=== PATIENT | female | born 1940 | race American Indian/Alaskan Native ===

== ENCOUNTER 2017-01-05 14:28 | Outpatient (CLI) | payer MEDICARE ==
--- NOTE | 2017-01-05 16:39 | Mammography Report ---
BILATERAL MAMMOGRAM: FINDINGS: The breast tissue is heterogeneously dense, which could obscure detection of small masses (approximately 50%-75% glandular). No mass, distortion, suspicious calcification, or skin change is seen. No significant change identified when compared to prior exam in January 2015. CAD was utilized. IMPRESSION: Negative mammogram. There is no mammographic evidence of malignancy. RECOMMENDATION: Follow-up per ACS guidelines. BI-RADS CATEGORY: 1 = Negative ACR BI-RADS MAMMOGRAPHIC CODES: 0 = Needs additional imaging evaluation; 1 = Negative; 2 = Benign; 3 = Probably benign; 4 = Suspicious; 5 = Malignant; 6 = Known biopsy-proven malignancy COMMENT: 1. Dense breast tissue, i.e., adenosis, fibrocystic changes, etc., may obscure an underlying neoplasm. 2. Approximately 10% of cancers are not detected with mammography. 3. A negative mammography report should not delay biopsy if a clinically suspicious mass is present. COMMENT: Patient follow-up letters are generated in [facility].
== END 2017-01-05 14:29 | disposition home or self-care (01) ==
LOC: MAMMO 14:28
PROVIDERS: ATTEND Internal Medicine
DX: Z12.31 Encounter for screening mammogram for malignant neoplasm of breast (principal)
CPT/HCPCS: 77067; G0202

== ENCOUNTER 2017-04-26 09:16 | Emergency (ER) | payer SELFPAY ==
[2017-04-26 12:42] LABS: Bilirubin,Urine NEG (Negative); Blood,Urine NEG (Negative); Color,Urine Yellow (Yellow); Mucus,Urine FEW /HPF; Nitrite,Urine NEG (Negative); Protein,Urine <15 mg/dL mg/dL (Negative); Urobilinogen,Urine < 2.0 mg/dL (<2.0)
[2017-04-26 13:03] LABS: Basophils % (Auto) 0.3 % (0.0-1.8); Eosinophils # (Auto) 0.1 K/mm3 (0.0-0.4); Eosinophils % (Auto) 1.2 % (0.0-4.3); Hematocrit 44.5 % (30.3-42.9); Hemoglobin 15.2 gm/dl (10.1-14.3); Lymphocytes # (Auto) 1.3 K/mm3 (1.2-5.4); Lymphocytes % (Auto) 15.5 % (13.4-35.0); Mean Corpuscular HGB Conc 34 % (30-34); Mean Corpuscular Hemoglobin 33 pg (28-32); Mean Corpuscular Volume 97 fl (79-97); Monocytes # (Auto) 1.1 K/mm3 (0.0-0.8); Monocytes % (Auto) 13.3 % (0.0-7.3); Platelet Count 164 K/mm3 (140-440); Red Blood Count 4.61 M/mm3 (3.65-5.03)
[2017-04-26 13:18] LABS: BUN/Creatinine Ratio 16; Blood Urea Nitrogen 11 mg/dL (7-17); Calcium 9.6 mg/dL (8.4-10.2); Hemolysis Index 11
--- NOTE | 2017-04-26 14:27 | Emergency Department Report ---
ED Anxiety HPI - General Chief Complaint: Anxiety Stated Complaint: SICK/HURT ALL OVER Time Seen by Provider: 04/26/17 11:24 Source: patient Mode of arrival: Ambulatory - History of Present Illness Initial Comments: This is a 77-year-old female nontoxic, well nourished in appearance, no acute signs of distress presents to the ED with c/o of anxiety exacerbation. 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 Patient stated she does have a primary care doctor and takes medication for anxiety. Patient had any chest pain, shortness of breath, fever, chills, nausea, vomiting, headache or stiff neck. Patient denies suicidal or homicidal indications. Patient denies any other symptoms. Denies any allergies. Past history includes arthritis, GERD, hypertension, and anxiety. MD Complaint: anxiety -: days(s) (2) Symptoms: palpitations Place: home Previous History of Same: Yes Severity: mild Quality: intermittant Provoking factors: emotional stress Improves With: nothing Worsens With: nothing Associated symptoms: palpitations. denies: chest pain, shortness of breath, diaphoresis, confusion, cough, fever/chills, headaches, anorexia, malaise, nausea/vomiting, rash, seizure, syncope, weakness - Related Data Home Medications: Home Medications Medication Instructions Recorded Confirmed Last Taken Buspirone HCl [busPIRone] 15 mg PO QDAY 02/12/16 02/12/16 02/14/16 06:00 Lisinopril [Zestril] 20 mg PO QDAY 02/12/16 02/12/16 02/14/16 06:00 Omeprazole Magnesium [PriLOSEC Otc] 20 mg PO QDAY 02/12/16 02/12/16 02/14/16 06: 00 amLODIPine [Norvasc] 5 mg PO DAILY 02/12/16 02/12/16 02/14/16 06:00 Allergies/Adverse Reactions: Allergies Allergy/AdvReac Type Severity Reaction Status Date / Time No Known Allergies Allergy Unverified 07/11/13 15:22 ED Review of Systems ROS: Stated complaint: SICK/HURT ALL OVER Other details as noted in HPI Constitutional: denies: chills, fever Eyes: denies: eye pain, eye discharge, vision change ENT: denies: ear pain, throat pain Respiratory: denies: cough, shortness of breath, wheezing Cardiovascular: palpitations. denies: chest pain Endocrine: no symptoms reported Gastrointestinal: denies: abdominal pain, nausea, diarrhea Genitourinary: denies: urgency, dysuria, discharge Musculoskeletal: denies: back pain, joint swelling, arthralgia Skin: denies: rash, lesions Neurological: denies: headache, weakness, paresthesias Psychiatric: anxiety. denies: depression Hematological/Lymphatic: denies: easy bleeding, easy bruising ED Past Medical Hx - Past Medical History Previous Medical History?: Yes Hx Hypertension: Yes (FOR 10+ YRS) Hx GERD: Yes Hx Arthritis: Yes (IN HANDS AND KNEES) Hx Kidney Stones: Yes Hx HIV: No - Surgical History Past Surgical History?: Yes Additional Surgical History: right thumb surgery - Social History Smoking Status: Current Some Day Smoker Substance Use Type: Marijuana, Prescribed, Tranquilizers - Medications Home Medications: Home Medications Medication Instructions Recorded Confirmed Last Taken Type Buspirone HCl [busPIRone] 15 mg PO QDAY 02/12/16 02/12/16 02/14/16 06:00 History Lisinopril [Zestril] 20 mg PO QDAY 02/12/16 02/12/16 02/14/16 06:00 History Omeprazole Magnesium [PriLOSEC Otc] 20 mg PO QDAY 02/12/16 02/12/16 02/14/16 06: 00 History amLODIPine [Norvasc] 5 mg PO DAILY 02/12/16 02/12/16 02/14/16 06:00 History ED Physical Exam - General Limitations: No Limitations General appearance: alert, in no apparent distress - Head Head exam: Present: atraumatic, normocephalic - Eye Eye exam: Present: normal appearance Pupils: Present: normal accommodation - ENT ENT exam: Present: normal exam, normal orophraynx, mucous membranes moist, TM's normal bilaterally, normal external ear exam - Neck Neck exam: Present: normal inspection, full ROM. Absent: tenderness, meningismus, lymphadenopathy, thyromegaly - Respiratory Respiratory exam: Present: normal lung sounds bilaterally. Absent: respiratory distress, wheezes, rales, rhonchi, stridor, chest wall tenderness, accessory muscle use, decreased breath sounds, prolonged expiratory - Cardiovascular Cardiovascular Exam: Present: regular rate, normal rhythm, normal heart sounds. Absent: bradycardia, tachycardia, irregular rhythm, systolic murmur, diastolic murmur, rubs, gallop - GI/Abdominal GI/Abdominal exam: Present: soft, normal bowel sounds. Absent: distended, tenderness, guarding, rebound, rigid, diminished bowel sounds - Rectal Rectal exam: Present: deferred - Extremities Exam Extremities exam: Present: normal inspection, full ROM, normal capillary refill. Absent: tenderness, pedal edema, joint swelling, calf tenderness - Back Exam Back exam: Present: normal inspection, full ROM. Absent: tenderness, CVA tenderness (R), CVA tenderness (L), muscle spasm, paraspinal tenderness, vertebral tenderness, rash noted - Neurological Exam Neurological exam: Present: alert, oriented X3, CN II-XII intact, normal gait, reflexes normal - Psychiatric Psychiatric exam: Present: normal affect, normal mood - Skin Skin exam: Present: warm, dry, intact, normal color. Absent: rash ED Course Vital Signs 04/26/17 09:57 Temperature 98.1 F Pulse Rate 65 Respiratory 16 Rate Blood Pressure 162/60 O2 Sat by Pulse 100 Oximetry - Reevaluation(s) Reevaluation #1: 04/26/17 14:29 Patient is speaking in full sentences with no signs of distress noted. ED Medical Decision Making - Lab Data Result diagrams: 04/26/17 12:34 04/26/17 12:34 - EKG Data When compared to previous EKG there are: no significant change Interpretation: no acute changes - Medical Decision Making This is a 77-year-old female that presents with anxiety. Patient is stable and was examined by me. EKG obtained with no acute changes and nonstemi. Patient currently stated is not anxious and does not have any SI/HI indications. Patient was instructed to Follow-up with a primary care doctor in 3-5 days or if symptoms worsen and continue return to emergency room as soon as possible. At time of discharge, the patient does not seem toxic or ill in appearance. No acute signs of distress noted. Patient agrees to discharge treatment plan of care. No further questions noted by the patient. Critical care attestation.: If time is entered above; I have spent that time in minutes in the direct care of this critically ill patient, excluding procedure time. ED Disposition Clinical Impression: Anxiety Disposition: DC-01 TO HOME OR SELFCARE Is pt being admited?: No Does the pt Need Aspirin: No Condition: Stable Instructions: Anxiety (ED) Additional Instructions: Follow-up with a primary care doctor in 3-5 days or if symptoms worsen and continue return to emergency room as soon as possible. Referrals: PRIMARY CARE, [Primary Care Provider] - 3-5 Days HUMBERTO SALINAS MD [Staff Physician] - 3-[address] [facility] [Outside] - 3-5 Days [facility] [Outside] - 3-5 Days
[2017-04-26 15:04] VITALS: BP 182/62
== END 2017-04-26 15:20 | disposition home or self-care (01) ==
LOC: ED 09:16
DX: F41.9 Anxiety disorder, unspecified (principal); F17.200 Nicotine dependence, unspecified, uncomplicated; F12.10 Cannabis abuse, uncomplicated; I10 Essential (primary) hypertension; K21.9 Gastro-esophageal reflux disease without esophagitis; M19.90 Unspecified osteoarthritis, unspecified site; F13.10 Sedative, hypnotic or anxiolytic abuse, uncomplicated; Z87.442 Personal history of urinary calculi
CPT/HCPCS: 36415; 80048; 81001; 84484; 85025; 93005; 93010; 99283

== ENCOUNTER 2018-10-19 08:19 | Emergency (ER) | payer MEDICARE ==
[2018-10-19] MEDS ORDERED: ASPIRIN PO ONE (08:34)
[2018-10-19 08:57] LABS: Basophils % (Auto) 0.3 % (0.0-1.8); Eosinophils # (Auto) 0.1 K/mm3 (0.0-0.4); Eosinophils % (Auto) 0.9 % (0.0-4.3); Hemoglobin 14.3 gm/dl (10.1-14.3); Lymphocytes # (Auto) 1.9 K/mm3 (1.2-5.4); Lymphocytes % (Auto) 18.7 % (13.4-35.0); Mean Corpuscular HGB Conc 34 % (30-34); Mean Corpuscular Volume 98 fl (79-97); Monocytes # (Auto) 0.9 K/mm3 (0.0-0.8); Monocytes % (Auto) 8.6 % (0.0-7.3); Platelet Count 202 K/mm3 (140-440); Red Blood Count 4.28 M/mm3 (3.65-5.03); Red Cell Distribution Width 13.5 % (13.2-15.2)
[2018-10-19 09:21] LABS: BUN/Creatinine Ratio 17; Blood Urea Nitrogen 12 mg/dL (7-17); Calcium 9.9 mg/dL (8.4-10.2); Hemolysis Index 4
--- NOTE | 2018-10-19 10:26 | Emergency Department Report ---
ED General Adult HPI - General Chief complaint: Chest Pain Stated complaint: NECK/SHOULDER PAIN Time Seen by Provider: 10/19/18 10:10 Source: patient Mode of arrival: Ambulatory Limitations: No Limitations - History of Present Illness Initial comments: 78-year-old female presents to the ED with stiffness in upper back, neck, and shoulders. Patient reports discomfort has been ongoing 2 days. Patient states this started at work, gradually. Patient reports brief episode of chest pain, currently resolved. Patient's main complaint is the upper back pain radiating into her neck and neck stiffness. Patient denies any shortness of breath. Denies fever, cough, nausea or vomiting. -: days(s) (2) Location: neck, chest, back Severity scale (0 -10): 8 Quality: aching, other ("stiff") Consistency: constant Improves with: none Worsens with: movement Associated Symptoms: chest pain. denies: fever/chills, headaches, nausea/vomiting, shortness of breath - Related Data Home Medications Medication Instructions Recorded Confirmed Last Taken Buspirone HCl [busPIRone] 15 mg PO QDAY 02/12/16 10/19/18 10/18/18 Lisinopril [Zestril] 20 mg PO QDAY 02/12/16 10/19/18 10/18/18 Omeprazole Magnesium [PriLOSEC Otc] 20 mg PO QDAY 02/12/16 10/19/18 10/18/18 amLODIPine [Norvasc] 5 mg PO DAILY 02/12/16 10/19/18 10/18/18 Previous Rx's Medication Instructions Recorded Last Taken Type Cyclobenzaprine HCl [Flexeril 5 MG 5 mg PO TID PRN #10 tab 10/19/18 Unknown Rx TAB] Naproxen [Naprosyn] 500 mg PO BID #20 tablet 10/19/18 Unknown Rx Allergies Allergy/AdvReac Type Severity Reaction Status Date / Time No Known Allergies Allergy Unverified 07/11/13 15:22 ED Review of Systems ROS: Stated complaint: NECK/SHOULDER PAIN Other details as noted in HPI Comment: All other systems reviewed and negative Constitutional: denies: chills, fever Respiratory: denies: cough, shortness of breath Cardiovascular: chest pain Gastrointestinal: denies: abdominal pain, nausea, vomiting Musculoskeletal: as per HPI Neurological: denies: headache ED Past Medical Hx - Past Medical History Previous Medical History?: Yes Hx Hypertension: Yes (FOR 10+ YRS) Hx GERD: Yes Hx Arthritis: Yes (IN HANDS AND KNEES) Hx Kidney Stones: Yes Hx HIV: No - Surgical History Past Surgical History?: Yes Additional Surgical History: right thumb surgery - Social History Smoking Status: Never Smoker Substance Use Type: Marijuana - Medications Home Medications: Home Medications Medication Instructions Recorded Confirmed Last Taken Type Buspirone HCl [busPIRone] 15 mg PO QDAY 02/12/16 10/19/18 10/18/18 History Lisinopril [Zestril] 20 mg PO QDAY 02/12/16 10/19/18 10/18/18 History Omeprazole Magnesium [PriLOSEC Otc] 20 mg PO QDAY 02/12/16 10/19/18 10/18/18 History amLODIPine [Norvasc] 5 mg PO DAILY 02/12/16 10/19/18 10/18/18 History Cyclobenzaprine HCl [Flexeril 5 MG 5 mg PO TID PRN #10 tab 10/19/18 Unknown Rx TAB] Naproxen [Naprosyn] 500 mg PO BID #20 tablet 10/19/18 Unknown Rx ED Physical Exam - General Limitations: No Limitations General appearance: alert, in no apparent distress - Head Head exam: Present: atraumatic, normocephalic - Eye Eye exam: Present: normal appearance, PERRL, EOMI - ENT ENT exam: Present: mucous membranes moist - Neck Neck exam: Present: other (decreased ROM and pain with leftward rotation) - Respiratory Respiratory exam: Present: normal lung sounds bilaterally. Absent: respiratory distress - Cardiovascular Cardiovascular Exam: Present: regular rate, normal rhythm - GI/Abdominal GI/Abdominal exam: Present: soft. Absent: distended, tenderness - Extremities Exam Extremities exam: Present: normal inspection, full ROM. Absent: pedal edema, calf tenderness - Back Exam Back exam: Present: normal inspection - Neurological Exam Neurological exam: Present: alert, oriented X3, CN II-XII intact. Absent: motor sensory deficit - Psychiatric Psychiatric exam: Present: normal affect, normal mood - Skin Skin exam: Present: warm, dry, intact, normal color ED Course Vital Signs 10/19/18 10/19/18 10/19/18 08:36 09:04 10:07 Temperature 98.2 F Pulse Rate 62 61 59 L Respiratory 18 20 17 Rate Blood Pressure 186/68 169/64 187/73 [Left] O2 Sat by Pulse 98 99 Oximetry 10/19/18 12:45 Temperature Pulse Rate 61 Respiratory 18 Rate Blood Pressure 148/72 [Left] O2 Sat by Pulse 96 Oximetry ED Medical Decision Making - Lab Data Result diagrams: 10/19/18 08:41 10/19/18 08:41 - EKG Data -: EKG Interpreted by [place] EKG shows normal: sinus rhythm, axis, intervals, QRS complexes, ST-T waves Rate: bradycardia (rate 59) - EKG Data Interpretation: no acute changes - Radiology Data Radiology results: report reviewed, image reviewed - Medical Decision Making - pt w/ 2 day hx of back and neck pain w/ stiffness - difficulty with rightward rotation - no neuro deficits - workup unremarkable - CTA negative for any evidence of aortic dissection - likely torticollis - pt given prescriptions - return precautions given - advised to f/u with her PCP - Differential Diagnosis torticollis, aortic dissection, ACS Critical care attestation.: If time is entered above; I have spent that time in minutes in the direct care of this critically ill patient, excluding procedure time. ED Disposition Clinical Impression: Acute torticollis Disposition: DC-01 TO HOME OR SELFCARE Is pt being admited?: No Condition: Stable Instructions: Spasmodic Torticollis (ED) Prescriptions: Cyclobenzaprine HCl [Flexeril 5 MG TAB] 5 mg PO TID PRN #10 tab PRN Reason: Spasms Naproxen [Naprosyn] 500 mg PO BID #20 tablet Referrals: [facility] TARYN [Primary Care Provider] - 3-5 Days PRIMARY CAREM[facility] [Referring] - 3-5 Days Time of Disposition: 12:39
[2018-10-19] MEDS ORDERED: MORPHINE IV ONE (10:27)
[2018-10-19] MEDS ORDERED: ZOFRAN IV ONE (10:27)
[2018-10-19] MEDS ORDERED: TORADOL IV ONE (12:17)
--- NOTE | 2018-10-19 12:33 | Cat Scan Report ---
CTA CHEST WITH CONTRAST INDICATION : chest and back pain. TECHNIQUE: Axial imaging performed through the chest, with contrast bolus timing set to maximize opa cification of the pulmonary arteries. Sagittal and coronal reformatted images. 3-plane MIP reformatte d images were obtained. All CT scans at this location are performed using CT dose reduction for ALAR A by means of automated exposure control. 100 mL of intravenous contrast administered. COMPARISON: None FINDINGS: Bolus: Contrast bolus timing is adequate. PTE: No filling defect is present to suggest PTE. Mediastinum: Mild cardiomegaly is evident. No pericardial effusion. The thoracic aorta is within nor mal limits. There are a few tiny bilateral thyroid cysts. The tracheobronchial tree and esophagus are unremarkable. No pathologic mediastinal adenopathy. Lungs: The lungs are clear. There are scattered parenchymal lung cysts measuring up to 1 cm. No evid ence for nodule, infiltrate or pleural effusion. Bones: Degenerative changes in the spine with nothing acute. Upper abdomen: Limited imaging of the upper abdomen shows nothing acute. IMPRESSION: Negative for pulmonary embolus. No acute cardiopulmonary findings. Minimal thoracic spondylosis. Signer Name: Celestino Chase Jr, MD Signed: 10/19/2018 12:29 PM Workstation Name: [id number]
[2018-10-19 12:46] VITALS: BP 148/72
--- NOTE | 2018-10-20 15:08 | XRay Report ---
CHEST 1 VIEW INDICATION: Shortness of breath. COMPARISON: None FINDINGS: Support devices: None. Heart: Heart size is borderline. Lungs/Pleura: No acute air space or interstitial disease. Additional findings: None. IMPRESSION: Borderline heart size. Lungs clear. Signer Name: Celestino Chase Jr, MD Signed: 10/19/2018 9:12 AM Workstation Name: [id number]
== END 2018-10-19 12:55 | disposition home or self-care (01) ==
LOC: ED 08:19
DX: M43.6 Torticollis (principal); I10 Essential (primary) hypertension; K21.9 Gastro-esophageal reflux disease without esophagitis; F12.10 Cannabis abuse, uncomplicated; M13.842 Other specified arthritis, left hand; M13.841 Other specified arthritis, right hand; M13.861 Other specified arthritis, right knee; M13.862 Other specified arthritis, left knee; Z79.899 Other long term (current) drug therapy; Z98.890 Other specified postprocedural states
CPT/HCPCS: 36415; 71045; 71275; 80048; 84484; 85025; 93005; 93010; 96374; 96375; 99285; J1885; J2270; J2405; Q9967

== ENCOUNTER 2018-12-18 13:00 | Inpatient (IN) | payer MEDICARE ==
--- NOTE | 2018-12-18 13:24 | Event Note ---
ED Screening Note Date of service: 12/18/18 Time: 13:20 ED Screening Note: This is a 78 y.o. F. that presents to the ER with hematemesis x 3-4 times since this morning. PMH of HTN, GERD, depression This initial assessment/diagnostic orders/clinical plan/treatment(s) is/are subject to change based on patients health status, clinical progression and re- assessment by fellow clinical providers in the ED. Further treatment and workup at subsequent clinical providers discretion. Patient/guardian urged not to elope from the ED as their condition may be serious if not clinically assessed and managed. Initial orders include: Labs
--- NOTE | 2018-12-18 14:27 | Emergency Department Report ---
ED Shortness of Breath HPI - General Chief Complaint: GI Bleed Stated Complaint: VOMIT BLOOD Time Seen by Provider: 12/18/18 13:20 Source: patient Mode of arrival: Ambulatory Limitations: No Limitations - History of Present Illness Initial Comments: 78-year-old -[place] female with history of hypertension and GERD presents with complaints of "hacking up blood" x today. She states she has been feeling fatigued for the past few days, but denies any chest pain, shortness of breath, worsening GERD, had a cheesy/black tarry stools, or abdominal pain. She states she believes she coughed up blood with a few clots she denies any history of PE/DVT, however states mild bilateral lower leg pain without swelling. No recent long travel or hormonal use -: Sudden - Related Data Home Medications Medication Instructions Recorded Confirmed Last Taken Buspirone HCl [busPIRone] 15 mg PO QDAY 02/12/16 10/19/18 10/18/18 Lisinopril [Zestril] 20 mg PO QDAY 02/12/16 10/19/18 10/18/18 Omeprazole Magnesium [PriLOSEC Otc] 20 mg PO QDAY 02/12/16 10/19/18 10/18/18 amLODIPine [Norvasc] 5 mg PO DAILY 02/12/16 10/19/18 10/18/18 Previous Rx's Medication Instructions Recorded Last Taken Type Cyclobenzaprine HCl [Flexeril 5 MG 5 mg PO TID PRN #10 tab 10/19/18 Unknown Rx TAB] Naproxen [Naprosyn] 500 mg PO BID #20 tablet 10/19/18 Unknown Rx Allergies Allergy/AdvReac Type Severity Reaction Status Date / Time No Known Allergies Allergy Unverified 07/11/13 15:22 ED Review of Systems ROS: Stated complaint: VOMIT BLOOD Other details as noted in HPI ED Past Medical Hx - Past Medical History Hx Hypertension: Yes (FOR 10+ YRS) Hx GERD: Yes Hx Arthritis: Yes (IN HANDS AND KNEES) Hx Kidney Stones: Yes Hx HIV: No - Surgical History Past Surgical History?: Yes Additional Surgical History: right thumb surgery - Social History Smoking Status: Current Every Day Smoker Substance Use Type: Marijuana - Medications Home Medications: Home Medications Medication Instructions Recorded Confirmed Last Taken Type Buspirone HCl [busPIRone] 15 mg PO QDAY 02/12/16 10/19/18 10/18/18 History Lisinopril [Zestril] 20 mg PO QDAY 02/12/16 10/19/18 10/18/18 History Omeprazole Magnesium [PriLOSEC Otc] 20 mg PO QDAY 02/12/16 10/19/18 10/18/18 History amLODIPine [Norvasc] 5 mg PO DAILY 02/12/16 10/19/18 10/18/18 History Cyclobenzaprine HCl [Flexeril 5 MG 5 mg PO TID PRN #10 tab 10/19/18 Unknown Rx TAB] Naproxen [Naprosyn] 500 mg PO BID #20 tablet 10/19/18 Unknown Rx ED Physical Exam - General Limitations: No Limitations ED Course Vital Signs 12/18/18 12/18/18 12/18/18 13:05 13:32 13:46 Temperature 98.2 F Pulse Rate 79 63 Respiratory 18 19 Rate Blood Pressure 145/58 Blood Pressure [Left] Blood Pressure 167/79 [Right] O2 Sat by Pulse 84 82 L 89 Oximetry 12/18/18 12/18/18 12/18/18 14:00 14:13 14:16 Temperature 99 F Pulse Rate 74 66 71 Respiratory 22 20 17 Rate Blood Pressure 145/58 140/61 Blood Pressure 145/58 [Left] Blood Pressure 145/58 [Right] O2 Sat by Pulse 100 96 98 Oximetry 12/18/18 12/18/18 12/18/18 14:30 14:46 15:00 Temperature Pulse Rate 67 72 70 Respiratory 22 22 21 Rate Blood Pressure 120/43 120/43 120/43 Blood Pressure [Left] Blood Pressure [Right] O2 Sat by Pulse 98 96 92 Oximetry 12/18/18 12/18/18 12/18/18 15:16 15:30 15:46 Temperature Pulse Rate 63 67 66 Respiratory 11 L 29 H 20 Rate Blood Pressure 120/43 151/61 151/61 Blood Pressure [Left] Blood Pressure [Right] O2 Sat by Pulse 96 95 100 Oximetry 12/18/18 12/18/18 16:00 16:36 Temperature Pulse Rate 100 H 80 Respiratory 21 15 Rate Blood Pressure 151/61 151/61 Blood Pressure [Left] Blood Pressure [Right] O2 Sat by Pulse 87 100 Oximetry ED Medical Decision Making - Lab Data Result diagrams: 12/18/18 15:06 12/18/18 15:06 Lab Results 12/18/18 12/18/18 12/18/18 Range/Units 15:06 15:06 15:06 WBC 16.3 H (4.5-11.0) K/mm3 RBC 4.46 (3.65-5.03) M/mm3 Hgb 14.6 H (10.1-14.3) gm/dl Hct 43.5 H (30.3-42.9) % MCV 98 H (79-97) fl MCH 33 H (28-32) pg MCHC 34 (30-34) % RDW 14.5 (13.2-15.2) % Plt Count 198 (140-440) K/mm3 Lymph % (Auto) 6.9 L (13.4-35.0) % [place] % (Auto) 5.8 (0.0-7.3) % Eos % (Auto) 0.0 (0.0-4.3) % Baso % (Auto) 0.5 (0.0-1.8) % Lymph # 1.1 L (1.2-5.4) K/mm3 [place] # 0.9 H (0.0-0.8) K/mm3 Eos # 0.0 (0.0-0.4) K/mm3 Baso # 0.1 (0.0-0.1) K/mm3 Seg Neutrophils % 86.8 H (40.0-70.0) % Seg Neutrophils # 14.2 H (1.8-7.7) K/mm3 PT (12.2-14.9) Sec. INR (0.87-1.13) APTT (24.2-36.6) Sec. Sodium 140 (137-145) mmol/L Potassium 4.1 (3.6-5.0) mmol/L Chloride 101.1 (98-107) mmol/L Carbon Dioxide 24 (22-30) mmol/L Anion Gap 19 mmol/L BUN 17 (7-17) mg/dL Creatinine 0.7 (0.7-1.2) mg/dL Estimated GFR > 60 ml/min BUN/Creatinine Ratio 24 % Glucose 95 (65-100) mg/dL Calcium 9.5 (8.4-10.2) mg/dL Troponin T 0.062 H (0.00-0.029) ng/mL NT-Pro-B Natriuret Pep (0-900) pg/mL Triglycerides 58 (2-149) mg/dL Cholesterol 177 (50-199) mg/dL LDL Cholesterol Direct 88 (50-130) mg/dL HDL Cholesterol 91 H (40-59) mg/dL Cholesterol/HDL Ratio 1.94 % Urine Color (Yellow) Urine Turbidity (Clear) Urine pH (5.0-7.0) Ur Specific [place] (1.003-1.030) Urine Protein (Negative) mg/dL Urine Glucose (UA) (Negative) mg/dL Urine Ketones (Negative) mg/dL Urine Blood (Negative) Urine Nitrite (Negative) Urine Bilirubin (Negative) Urine Urobilinogen (<2.0) mg/dL Ur Leukocyte Esterase (Negative) Urine WBC (Auto) (0.0-6.0) /HPF Urine RBC (Auto) (0.0-6.0) /HPF U Epithel Cells (Auto) (0-13.0) /HPF Urine Mucus /HPF 12/18/18 12/18/18 12/18/18 Range/Units 16:11 16:37 16:37 WBC (4.5-11.0) K/mm3 RBC (3.65-5.03) M/mm3 Hgb (10.1-14.3) gm/dl Hct (30.3-42.9) % MCV (79-97) fl MCH (28-32) pg MCHC (30-34) % RDW (13.2-15.2) % Plt Count (140-440) K/mm3 Lymph % (Auto) (13.4-35.0) % [place] % (Auto) (0.0-7.3) % Eos % (Auto) (0.0-4.3) % Baso % (Auto) (0.0-1.8) % Lymph # (1.2-5.4) K/mm3 [place] # (0.0-0.8) K/mm3 Eos # (0.0-0.4) K/mm3 Baso # (0.0-0.1) K/mm3 Seg Neutrophils % (40.0-70.0) % Seg Neutrophils # (1.8-7.7) K/mm3 PT 13.3 (12.2-14.9) Sec. INR 1.04 (0.87-1.13) APTT 29.2 (24.2-36.6) Sec. Sodium (137-145) mmol/L Potassium (3.6-5.0) mmol/L Chloride (98-107) mmol/L Carbon Dioxide (22-30) mmol/L Anion Gap mmol/L BUN (7-17) mg/dL Creatinine (0.7-1.2) mg/dL Estimated GFR ml/min BUN/Creatinine Ratio % Glucose (65-100) mg/dL Calcium (8.4-10.2) mg/dL Troponin T (0.00-0.029) ng/mL NT-Pro-B Natriuret Pep 843.5 (0-900) pg/mL Triglycerides (2-149) mg/dL Cholesterol (50-199) mg/dL LDL Cholesterol Direct (50-130) mg/dL HDL Cholesterol (40-59) mg/dL Cholesterol/HDL Ratio % Urine Color Yellow (Yellow) Urine Turbidity Clear (Clear) Urine pH 6.0 (5.0-7.0) Ur Specific [place] 1.013 (1.003-1.030) Urine Protein <15 mg/dl (Negative) mg/dL Urine Glucose (UA) Neg (Negative) mg/dL Urine Ketones Neg (Negative) mg/dL Urine Blood Neg (Negative) Urine Nitrite Neg (Negative) Urine Bilirubin Neg (Negative) Urine Urobilinogen < 2.0 (<2.0) mg/dL Ur Leukocyte Esterase Neg (Negative) Urine WBC (Auto) < 1.0 (0.0-6.0) /HPF Urine RBC (Auto) 2.0 (0.0-6.0) /HPF U Epithel Cells (Auto) < 1.0 (0-13.0) /HPF Urine Mucus Few /HPF - Radiology Data Radiology results: report reviewed CTA CHEST WITH CONTRAST INDICATION / CLINICAL INFORMATION: hypoxia, hemoptysis. TECHNIQUE: Axial CT images were obtained through the chest after injection of IV contrast. 3 plane MIP and/or 3D reconstructions were produced. All CT scans at this location are performed using CT dose reduction for ALARA by means of automated exposure control. COMPARISON: None available. FINDINGS: PULMONARY ARTERIES: No pulmonary emboli. THORACIC AORTA: No significant abnormality. HEART: Mildly enlarged. Slight enlargement of left ventricle since prior study. No pericardial effusion. CORONARY ARTERIES: Mild coronary artery calcification. MEDIASTINUM / KELLEN: No significant abnormality. PLEURA: No pleural effusion. No pneumothorax. LUNGS: Moderate bilateral interstitial pulmonary edema with peribronchial cuffing. ADDITIONAL FINDINGS: None. UPPER ABDOMEN: No acute findings. SKELETAL STRUCTURES: No significant osseous abnormality. IMPRESSION: 1. Mild cardiomegaly with moderate interstitial pulmonary edema. 2. No CT evidence for pulmonary embolism. DUPLEX DOPPLER LOWER EXTREMITY VEINS, BILATERAL INDICATION / CLINICAL INFORMATION: pain, hemoptysis. TECHNIQUE: Duplex doppler imaging was performed through the veins of both lower extremities using venous compression and other maneuvers. COMPARISON: None available. FINDINGS: RIGHT COMMON FEMORAL VEIN: Negative. RIGHT FEMORAL VEIN: Negative. RIGHT POPLITEAL VEIN: Negative. RIGHT CALF VEINS: Negative. LEFT COMMON FEMORAL VEIN: Negative. LEFT FEMORAL VEIN: Negative. LEFT POPLITEAL VEIN: Negative. LEFT CALF VEINS: Negative. ADDITIONAL FINDINGS: None. IMPRESSION: 1. No sonographic evidence for DVT in either lower extremity. - Medical Decision Making 78-year-old patient here for hemoptysis times one episode this morning. Patient noted to be hypoxic on room air satting around 88%. Patient satting at 96-98% on [address] a and ultrasound are negative for DVT and PE. Troponin mildly elevated. White count greater than 16. Patient continues to deny chest pain or shortness of breath. Discussed patient with samuel Gomez ardiologyrecommend serial EKGs, troponins, and admission. Patient to be admitted to hospital via Dr. Pope. Critical care attestation.: If time is entered above; I have spent that time in minutes in the direct care of this critically ill patient, excluding procedure time. ED Disposition Clinical Impression: Hypoxia, Elevated troponin Disposition: OP ADMIT IP TO THIS HOSP Is pt being admited?: Yes Condition: Stable Forms: Accompanied Note
[2018-12-18 15:49] LABS: Basophils # (Auto) 0.1 K/mm3 (0.0-0.1); Basophils % (Auto) 0.5 % (0.0-1.8); Hematocrit 43.5 % (30.3-42.9); Hemoglobin 14.6 gm/dl (10.1-14.3); Lymphocytes # (Auto) 1.1 K/mm3 (1.2-5.4); Lymphocytes % (Auto) 6.9 % (13.4-35.0); Mean Corpuscular HGB Conc 34 % (30-34); Mean Corpuscular Volume 98 fl (79-97); Monocytes # (Auto) 0.9 K/mm3 (0.0-0.8); Monocytes % (Auto) 5.8 % (0.0-7.3); Platelet Count 198 K/mm3 (140-440); Red Blood Count 4.46 M/mm3 (3.65-5.03); Red Cell Distribution Width 14.5 % (13.2-15.2)
[2018-12-18 16:08] LABS: BUN/Creatinine Ratio 24; Blood Urea Nitrogen 17 mg/dL (7-17); Calcium 9.5 mg/dL (8.4-10.2); Hemolysis Index 1
[2018-12-18 16:24] LABS: Bilirubin,Urine NEG (Negative); Blood,Urine NEG (Negative); Color,Urine Yellow (Yellow); Mucus,Urine FEW /HPF; Protein,Urine <15 mg/dL mg/dL (Negative); Urobilinogen,Urine < 2.0 mg/dL (<2.0); WBC,Urine < 1.0 /HPF (0.0-6.0)
--- NOTE | 2018-12-18 16:49 | Vascular Lab Report ---
DUPLEX DOPPLER LOWER EXTREMITY VEINS, BILATERAL INDICATION / CLINICAL INFORMATION: pain, hemoptysis. TECHNIQUE: Duplex doppler imaging was performed through the veins of both lower extremities using venous nory sravan and other maneuvers. COMPARISON: None available. FINDINGS: RIGHT COMMON FEMORAL VEIN: Negative. RIGHT FEMORAL VEIN: Negative. RIGHT POPLITEAL VEIN: Negative. RIGHT CALF VEINS: Negative. LEFT COMMON FEMORAL VEIN: Negative. LEFT FEMORAL VEIN: Negative. LEFT POPLITEAL VEIN: Negative. LEFT CALF VEINS: Negative. ADDITIONAL FINDINGS: None. IMPRESSION: 1. No sonographic evidence for DVT in either lower extremity. Signer Name: Makenna Escobedo MD Signed: 12/18/2018 4:44 PM Workstation Name: [id number]
[2018-12-18 17:02] LABS: Chol/HDL Ratio 1.94 %
[2018-12-18 17:56] LABS: INR 1.04 (0.87-1.13)
[2018-12-18 17:57] LABS: Partial Thromboplastin Time 29.2 Sec. (24.2-36.6)
--- NOTE | 2018-12-18 17:58 | Cat Scan Report ---
CTA CHEST WITH CONTRAST INDICATION / CLINICAL INFORMATION: hypoxia, hemoptysis. TECHNIQUE: Axial CT images were obtained through the chest after injection of IV contrast. 3 plane MIP and/or 3D reconstructions were produced. All CT scans at this location are performed using CT dose reduction f or ALARA by means of automated exposure control. COMPARISON: None available. FINDINGS: PULMONARY ARTERIES: No pulmonary emboli. THORACIC AORTA: No significant abnormality. HEART: Mildly enlarged. Slight enlargement of left ventricle since prior study. No pericardial effusi on. CORONARY ARTERIES: Mild coronary artery calcification. MEDIASTINUM / KELLEN: No significant abnormality. PLEURA: No pleural effusion. No pneumothorax. LUNGS: Moderate bilateral interstitial pulmonary edema with peribronchial cuffing. ADDITIONAL FINDINGS: None. UPPER ABDOMEN: No acute findings. SKELETAL STRUCTURES: No significant osseous abnormality. IMPRESSION: 1. Mild cardiomegaly with moderate interstitial pulmonary edema. 2. No CT evidence for pulmonary embolism. Signer Name: Makenna Escobedo MD Signed: 12/18/2018 5:54 PM Workstation Name: [id number]
--- NOTE | 2018-12-18 19:07 | XRay Report ---
CHEST 1 VIEW INDICATION: Chest Pain. COMPARISON: 10/19/2018. FINDINGS: Support devices: None. Heart: Normal. Lungs/Pleura: Mild diffuse interstitial opacities may be due to pulmonary edema. No significant effus ion. No pneumothorax. IMPRESSION: 1. Mild interstitial edema. Signer Name: Félix Mora MD Signed: 12/18/2018 7:03 PM Workstation Name: [id number]
[2018-12-18] MEDS ORDERED: SODIUM CHLORIDE FLUSH SYRINGE 10 ML IV PRN (21:12)
[2018-12-18] MEDS ORDERED: TYLENOL PO PRN (21:12)
[2018-12-18] MEDS ORDERED: ZOFRAN IV PRN (21:12)
[2018-12-18] MEDS ORDERED: PERCOCET 5/325 PO PRN (21:12)
[2018-12-18] MEDS ORDERED: DILAUDID IV PRN (21:12)
--- NOTE | 2018-12-18 21:12 | History and Physical Report ---
History of Present Illness Date of examination: 12/18/18 Date of admission: 12/18/18 18:16 Chief complaint: Coughing up blood x 1 in AM History of present illness: 78-year-old -[place] female with history of hypertension and GERD presents with complaints of coughing up blood in AM one time.It was a blood clot and Significant about 5 ml x 1 today. She states she has been feeling fatigued for the past few days, but denies any chest pain, shortness of breath, worsening GERD, or abdominal pain. No Black tarry stools. She states she believes she coughed up blood with a few clots .She denies any history of PE/DVT, however states mild bilateral lower leg pain without swelling. No recent long travel or hormonal use. No chest pain or diaphoresis. Past Medical History Hypertension: Yes (FOR 10+ YRS) GERD: Yes Arthritis: Yes (IN HANDS AND KNEES) Surgical History Past Surgical History?: Yes Additional Surgical History: right thumb surgery Social History Smoking Status: Current Every Day Smoker Substance Use Type: Marijuana Family History HTN Medications Home Medications: Home Medications Medication Instructions Recorded Confirmed Last Taken Type Buspirone HCl [busPIRone] 15 mg PO QDAY 02/12/16 10/19/18 10/18/18 History Lisinopril [Zestril] 20 mg PO QDAY 02/12/16 10/19/18 10/18/18 History Omeprazole Magnesium [PriLOSEC Otc] 20 mg PO QDAY 02/12/16 10/19/18 10/18/18 History amLODIPine [Norvasc] 5 mg PO DAILY 02/12/16 10/19/18 10/18/18 History Cyclobenzaprine HCl [Flexeril 5 MG 5 mg PO TID PRN #10 tab 10/19/18 Unknown Rx TAB] Naproxen [Naprosyn] 500 mg PO BID #20 tablet 10/19/18 Unknown Rx Review of Systems ROS: Stated complaint: VOMIT BLOOD Other details as noted in HPI Medications and Allergies Allergies Allergy/AdvReac Type Severity Reaction Status Date / Time No Known Allergies Allergy Unverified 07/11/13 15:22 Home Medications Medication Instructions Recorded Confirmed Last Taken Type Buspirone HCl [busPIRone] 15 mg PO BID 02/12/16 12/18/18 12/17/18 History Lisinopril [Zestril] 20 mg PO QPM 02/12/16 12/18/18 12/17/18 History Omeprazole Magnesium [PriLOSEC Otc] 20 mg PO QDAY 02/12/16 12/18/18 12/17/18 History amLODIPine [Norvasc] 5 mg PO DAILY 02/12/16 12/18/18 12/17/18 History Exam - Constitutional Vitals: Temp Pulse Resp BP Pulse Ox 98.8 F 62 18 152/59 94 12/18/18 19:55 12/18/18 19:55 12/18/18 19:55 12/18/18 19:55 12/18/18 19:55 General appearance: Present: no acute distress, well-nourished - EENT Eyes: Present: PERRL ENT: hearing intact, clear oral mucosa - Neck Neck: Present: supple, normal ROM - Respiratory Respiratory effort: normal Respiratory: bilateral: CTA - Cardiovascular Heart rate: 78 Rhythm: regular Heart Sounds: Present: S1 & S2. Absent: rub, click - Extremities Extremities: no ischemia, pulses symmetrical, No edema Peripheral Pulses: within normal limits - Abdominal General gastrointestinal: Present: soft, non-tender, non-distended, normal bowel sounds Female genitourinary: Present: normal - Rectal Rectal Exam: stool brown - Integumentary Integumentary: Present: clear, warm, dry - Musculoskeletal Musculoskeletal: gait normal, strength equal bilaterally - Psychiatric Psychiatric: appropriate mood/affect, intact judgment & insight - Neurologic Neurologic: CNII-XII intact, moves all extremities - Allied Health Allied health notes reviewed: nursing, case management Results - Labs CBC & Chem 7: 12/19/18 05:39 12/19/18 05:39 Labs: Laboratory Last Values WBC 16.3 K/mm3 (4.5-11.0) H 12/18/18 15:06 RBC 4.46 M/mm3 (3.65-5.03) 12/18/18 15:06 Hgb 14.6 gm/dl (10.1-14.3) H 12/18/18 15:06 Hct 43.5 % (30.3-42.9) H 12/18/18 15:06 MCV 98 fl (79-97) H 12/18/18 15:06 MCH 33 pg (28-32) H 12/18/18 15:06 MCHC 34 % (30-34) 12/18/18 15:06 RDW 14.5 % (13.2-15.2) 12/18/18 15:06 Plt Count 198 K/mm3 (140-440) 12/18/18 15:06 Lymph % (Auto) 6.9 % (13.4-35.0) L 12/18/18 15:06 [place] % (Auto) 5.8 % (0.0-7.3) 12/18/18 15:06 Eos % (Auto) 0.0 % (0.0-4.3) 12/18/18 15:06 Baso % (Auto) 0.5 % (0.0-1.8) 12/18/18 15:06 Lymph # 1.1 K/mm3 (1.2-5.4) L 12/18/18 15:06 [place] # 0.9 K/mm3 (0.0-0.8) H 12/18/18 15:06 Eos # 0.0 K/mm3 (0.0-0.4) 12/18/18 15:06 Baso # 0.1 K/mm3 (0.0-0.1) 12/18/18 15:06 Seg Neutrophils % 86.8 % (40.0-70.0) H 12/18/18 15:06 Seg Neutrophils # 14.2 K/mm3 (1.8-7.7) H 12/18/18 15:06 PT 13.3 Sec. (12.2-14.9) 12/18/18 16:37 INR 1.04 (0.87-1.13) 12/18/18 16:37 APTT 29.2 Sec. (24.2-36.6) 12/18/18 16:37 Sodium 140 mmol/L (137-145) 12/18/18 15:06 Potassium 4.1 mmol/L (3.6-5.0) 12/18/18 15:06 Chloride 101.1 mmol/L (98-107) 12/18/18 15:06 Carbon Dioxide 24 mmol/L (22-30) 12/18/18 15:06 Anion Gap 19 mmol/L 12/18/18 15:06 BUN 17 mg/dL (7-17) 12/18/18 15:06 Creatinine 0.7 mg/dL (0.7-1.2) 12/18/18 15:06 Estimated GFR > 60 ml/min 12/18/18 15:06 BUN/Creatinine Ratio 24 % 12/18/18 15:06 Glucose 95 mg/dL (65-100) 12/18/18 15:06 Calcium 9.5 mg/dL (8.4-10.2) 12/18/18 15:06 Troponin T 0.088 ng/mL (0.00-0.029) H 12/18/18 20:23 NT-Pro-B Natriuret Pep 843.5 pg/mL (0-900) 12/18/18 16:37 Triglycerides 58 mg/dL (2-149) 12/18/18 15:06 Cholesterol 177 mg/dL (50-199) 12/18/18 15:06 LDL Cholesterol Direct 88 mg/dL (50-130) 12/18/18 15:06 HDL Cholesterol 91 mg/dL (40-59) H 12/18/18 15:06 Cholesterol/HDL Ratio 1.94 % 12/18/18 15:06 Urine Color Yellow (Yellow) 12/18/18 16:11 Urine Turbidity Clear (Clear) 12/18/18 16:11 Urine pH 6.0 (5.0-7.0) 12/18/18 16:11 Ur Specific [place] 1.013 (1.003-1.030) 12/18/18 16:11 Urine Protein <15 mg/dl mg/dL (Negative) 12/18/18 16:11 Urine Glucose (UA) Neg mg/dL (Negative) 12/18/18 16:11 Urine Ketones Neg mg/dL (Negative) 12/18/18 16:11 Urine Blood Neg (Negative) 12/18/18 16:11 Urine Nitrite Neg (Negative) 12/18/18 16:11 Urine Bilirubin Neg (Negative) 12/18/18 16:11 Urine Urobilinogen < 2.0 mg/dL (<2.0) 12/18/18 16:11 Ur Leukocyte Esterase Neg (Negative) 12/18/18 16:11 Urine WBC (Auto) < 1.0 /HPF (0.0-6.0) 12/18/18 16:11 Urine RBC (Auto) 2.0 /HPF (0.0-6.0) 12/18/18 16:11 U Epithel Cells (Auto) < 1.0 /HPF (0-13.0) 12/18/18 16:11 Urine Mucus Few /HPF 12/18/18 16:11 - Imaging and Cardiology EKG: report reviewed (NSR LVH by voltage criteria HR 75/min) Chest x-ray: report reviewed Imaging and Cardiology: CT Chest IMPRESSION: 1. Mild cardiomegaly with moderate interstitial pulmonary edema. 2. No CT evidence for pulmonary embolism. Duplex scan IMPRESSION: 1. No sonographic evidence for DVT in either lower extremity. CXR IMPRESSION: 1. Mild interstitial edema. Assessment and Plan Advance Directives: Yes (Full code) VTE prophylaxis?: Chemical Plan of care discussed with patient/family: Yes - Patient Problems (1) NSTEMI (non-ST elevated myocardial infarction) Current Visit: Yes Status: Acute Plan to address problem: TroponinsHigh IV Heparin per Heprin protocol Cardiology consult No chest pain. (2) Hemoptysis Current Visit: Yes Status: Acute Plan to address problem: CTA negative for any malignancy Interstitial edema Treat with empiric abx and Duonebs prn Possible Bronchitis High WBC count (3) HTN (hypertension) Current Visit: Yes Status: Chronic Qualifiers: Hypertension type: essential hypertension Qualified Code(s): I10 - Essential (primary) hypertension Plan to address problem: Cont antihypertensives (4) GERD (gastroesophageal reflux disease) Current Visit: Yes Status: Chronic Qualifiers: Esophagitis presence: without esophagitis Qualified Code(s): K21.9 - Gastro-esophageal reflux disease without esophagitis Plan to address problem: Cont PPI's (5) DVT prophylaxis Current Visit: Yes Status: Acute Plan to address problem: On Heparin drip and ppi's
[2018-12-18] MEDS ORDERED: HEPARIN 10,000 UNITS/10 ML IV ONE (21:17)
[2018-12-18] MEDS ORDERED: DUONEB *Not for PRN Use IH (21:23)
[2018-12-18 22:16] LABS: Hematocrit 42.6 % (30.3-42.9); Hemoglobin 14.4 gm/dl (10.1-14.3)
[2018-12-18 22:31] LABS: INR 1.09 (0.87-1.13); Partial Thromboplastin Time 28.9 Sec. (24.2-36.6)
[2018-12-18] MEDS: NACL 0.9% 1000 ML 1,000 ML IV SCH (22:43)
[2018-12-18] MEDS: ROCEPHIN/NS 2 GM/100 ML 2 GM/100 ML BAG IV SCH (22:50)
[2018-12-18] MEDS: PEPCID PO SCH (22:55)
[2018-12-18] MEDS: SODIUM CHLORIDE FLUSH SYRINGE 10 ML IV SCH (22:55)
[2018-12-18] MEDS ORDERED: PROVENTIL IH PRN (23:03)
[2018-12-18] MEDS: ZITHROMAX 500 MG in NACL 0.9% 250ML 250 ML IV SCH (23:29)
[2018-12-18] MEDS: HEPARIN/ 0.45% NACL-25,000 UNIT/500 ML 25,000 UNIT/500 ML BAG IV SCH (23:34)
[2018-12-19 06:33] LABS: Basophils % (Auto) 0.2 % (0.0-1.8); Eosinophils % (Auto) 0.3 % (0.0-4.3); Hematocrit 40.5 % (30.3-42.9); Hemoglobin 13.5 gm/dl (10.1-14.3); Mean Corpuscular HGB Conc 33 % (30-34); Mean Corpuscular Volume 98 fl (79-97); Monocytes # (Auto) 0.9 K/mm3 (0.0-0.8); Monocytes % (Auto) 6.7 % (0.0-7.3); Red Blood Count 4.16 M/mm3 (3.65-5.03); Red Cell Distribution Width 14.5 % (13.2-15.2)
[2018-12-19 06:53] LABS: Alanine Aminotransferase 8 units/L (7-56); Albumin 3.7 g/dL (3.9-5); BUN/Creatinine Ratio 22; Blood Urea Nitrogen 13 mg/dL (7-17); Calcium 9.3 mg/dL (8.4-10.2); Hemolysis Index 1
[2018-12-19 07:53] LABS: Mean Platelet Volume 8.8 fl (6-12); Platelet Count 190 K/mm3 (140-440)
[2018-12-19] MEDS: PEPCID PO SCH ×2 (10:37→21:56)
[2018-12-19] MEDS: SODIUM CHLORIDE FLUSH SYRINGE 10 ML IV SCH ×2 (10:37→21:59)
--- NOTE | 2018-12-19 11:12 | Consultation ---
History of Present Illness Consult date: 12/19/18 Requesting physician: ALONZO TERRAZAS Consult reason: abnormal cardiac enzymes History of present illness: Patient is a 78 yr with no significant past cardiac history who presented to the hospital after an episode of hematemesis. Patient reports she coughed up blood spontaneously. She has been having some bronchitis type symptoms earlier. Concerned with coughing blood she came in to the ER. In the ER she was noted to have an abnormal EKG and elevated cardiac enzymes. She reports no chest pain or SOB. No prior episodes of hematemesis. She currently denies any chest pain. CT chest in the ER was negative for PE. She reports no recent cardiac evaluation nor does she see a abrasive mixer helper on a regular basis. She does have a family history of CAD with her sister having to undergo CABG. She was recenlty in the ER couple of months ago and was discharged home on Naproxen. Past History Past Medical History: hypertension Past Surgical History: cataract removal Social history: other (marijuana abuse) Family history: CAD Medications and Allergies Allergies Allergy/AdvReac Type Severity Reaction Status Date / Time No Known Allergies Allergy Unverified 07/11/13 15:22 Home Medications Medication Instructions Recorded Confirmed Last Taken Type Buspirone HCl [busPIRone] 15 mg PO BID 02/12/16 12/18/18 12/17/18 History Lisinopril [Zestril] 20 mg PO QPM 02/12/16 12/18/18 12/17/18 History Omeprazole Magnesium [PriLOSEC Otc] 20 mg PO QDAY 02/12/16 12/18/18 12/17/18 History amLODIPine [Norvasc] 5 mg PO DAILY 02/12/16 12/18/18 12/17/18 History Active Meds: Active Medications Acetaminophen (Tylenol) 650 mg PO Q4H PRN PRN Reason: Pain MILD(1-3)/Fever >100.5/JURADO Albuterol (Proventil) 2.5 mg IH Q3HRT PRN PRN Reason: Wheezing Famotidine (Pepcid) 20 mg PO BID [facility] Last Admin: 12/19/18 10:37 Dose: 20 mg Documented by: Hydromorphone HCl (Dilaudid) 0.5 mg IV Q3H PRN PRN Reason: Pain , Severe (7-10) Sodium Chloride (Nacl 0.9% 1000 Ml) 1,000 mls @ 42 mls/hr IV DIRECT [facility] Last Admin: 12/18/18 22:43 Dose: 42 mls/hr Documented by: Heparin Sodium/Sodium Chloride (Heparin/ 0.45% Nacl-25,000 Unit/500 Ml) 25,000 unit in 500 mls @ 16 mls/hr IV TITRATE [facility]; Protocol Last Titration: 12/19/18 06:44 Dose: 800 units/hr, 16 mls/hr Documented by: Azithromycin 500 mg/ Sodium (Chloride) 250 mls @ 250 mls/hr IV Q24HR@2200 [facility]; Protocol Last Admin: 12/18/18 23:29 Dose: 250 mls/hr Documented by: Ceftriaxone Sodium (Rocephin/Ns 2 Gm/100 Ml) 2 gm in 100 mls @ 200 mls/hr IV Q24HR@2200 [facility]; Protocol Last Admin: 12/18/18 22:50 Dose: 200 mls/hr Documented by: Ondansetron HCl (Zofran) 4 mg IV Q8H PRN PRN Reason: Nausea And Vomiting Oxycodone/Acetaminophen (Percocet 5/325) 1 tab PO Q6H PRN PRN Reason: Pain, Moderate (4-6) Sodium Chloride (Sodium Chloride Flush Syringe 10 Ml) 10 ml IV BID [facility] Last Admin: 12/19/18 10:37 Dose: 10 ml Documented by: Sodium Chloride (Sodium Chloride Flush Syringe 10 Ml) 10 ml IV PRN PRN PRN Reason: LINE FLUSH Review of Systems All systems: negative (as mentioned in the H&P) Physical Examination Vital Signs Temp Pulse Resp BP Pulse Ox 98.2 F 79 18 167/79 84 12/18/18 13:05 12/18/18 13:05 12/18/18 13:05 12/18/18 13:05 12/18/18 13:05 General appearance: no acute distress HEENT: Positive: Normocephaly Neck: Positive: neck supple Cardiac: Positive: Reg Rate and Rhythm, Systolic Murmur (2-3/6 systolic murmur) Lungs: Positive: Normal Exam Neuro: Positive: Grossly Intact Abdomen: Positive: Unremarkable Extremities: Present: normal Results 12/19/18 05:39 10/13/19 05:39 Cardiac Enzymes 12/19/18 Range/Units 05:39 AST 17 (5-40) units/L Coagulation 12/18/18 12/18/18 Range/Units 16:37 21:51 PT 13.3 13.8 (12.2-14.9) Sec. INR 1.04 1.09 (0.87-1.13) APTT 29.2 28.9 (24.2-36.6) Sec. Lipids 12/18/18 Range/Units 15:06 Triglycerides 58 (2-149) mg/dL Cholesterol 177 (50-199) mg/dL HDL Cholesterol 91 H (40-59) mg/dL Cholesterol/HDL Ratio 1.94 % CBC 12/18/18 12/18/18 12/19/18 Range/Units 15:06 21:51 05:39 WBC 16.3 H 14.2 H (4.5-11.0) K/mm3 RBC 4.46 4.16 (3.65-5.03) M/mm3 Hgb 14.6 H 14.4 H 13.5 (10.1-14.3) gm/dl Hct 43.5 H 42.6 40.5 (30.3-42.9) % Plt Count 198 196 190 (140-440) K/mm3 Lymph # 1.1 L 2.0 (1.2-5.4) K/mm3 [place] # 0.9 H 0.9 H (0.0-0.8) K/mm3 Eos # 0.0 0.0 (0.0-0.4) K/mm3 Baso # 0.1 0.0 (0.0-0.1) K/mm3 Comprehensive Metabolic Panel 12/18/18 12/19/18 Range/Units 15:06 05:39 Sodium 140 141 (137-145) mmol/L Potassium 4.1 3.9 (3.6-5.0) mmol/L Chloride 101.1 102.8 (98-107) mmol/L Carbon Dioxide 24 25 (22-30) mmol/L BUN 17 13 (7-17) mg/dL Creatinine 0.7 0.6 L (0.7-1.2) mg/dL Glucose 95 98 (65-100) mg/dL Calcium 9.5 9.3 (8.4-10.2) mg/dL AST 17 (5-40) units/L ALT 8 (7-56) units/L Alkaline Phosphatase 91 (35-129) units/L Total Protein 6.7 (6.3-8.2) g/dL Albumin 3.7 L (3.9-5) g/dL EKG interpretations - Telemetry EKG Rhythm: Sinus Rhythm (with new anterior T wave inversion) Assessment and Plan Impression * NSTEMI * Abnormal EKG with new T wave inversion * Hematemesis with no significnat drop in H&H * HTN * Family history of CAD Plan * Aspirin/heparin/statins and low dose betablockers * Pulmonology evaluation for hematemesis * If cleared by pulmonology cardiac cath tomorrow * 2D echo
[2018-12-19] MEDS ORDERED: NACL 0.9% 500 ML 500 ML IV SCH (12:00)
[2018-12-19] MEDS: BABY ASPIRIN PO SCH (13:00)
[2018-12-19] MEDS: PROTONIX PO SCH (13:00)
[2018-12-19] MEDS: LOPRESSOR PO SCH ×2 (13:00→21:57)
[2018-12-19] MEDS: HEPARIN/ 0.45% NACL-25,000 UNIT/500 ML 25,000 UNIT/500 ML BAG IV SCH (13:05)
--- NOTE | 2018-12-19 13:15 | Event Note ---
Date: 12/19/18 Patient was admitted today was seen and examined. We'll continue with current management.
--- NOTE | 2018-12-19 14:34 | Consultation ---
History of Present Illness Consult date: 12/19/18 Requesting physician: ABIDA HINOJOSA Reason for consult: other (Hemoptysis) History of present illness: Patient is a 78 yr with no significant past cardiac history who presented to the hospital after an episode of hemoptysis. Patient reports she coughed up blood spontaneously- stated it happened once.. She has been having some bronchitis type symptoms earlier. Concerned with coughing blood she came in to the ER. In t ER she was noted to have an abnormal EKG and elevated cardiac enzymes. She reports no chest pain or SOB. She currently denies any chest pain. CT chest in the ER was negative for PE. She was recenlty in the ER couple of months ago and was discharged home on Naproxen. She smoked cigarettes, quit over 20 years ago, ongoing marajuana use is at the bedside. I have been consulted for hemoptysis. Thank you Patient was seen and examined. Vitals, labs, medications, chart and imaging reviewed. She states that she is anxious, and was unable to sleep last night. Denies any further episodes of hemoptysis. Past History Past Medical History: hypertension Past Surgical History: cataract removal Social history: other (marijuana abuse) Family history: CAD Medications and Allergies Allergies Allergy/AdvReac Type Severity Reaction Status Date / Time No Known Allergies Allergy Unverified 07/11/13 15:22 Home Medications Medication Instructions Recorded Confirmed Last Taken Type Buspirone HCl [busPIRone] 15 mg PO BID 02/12/16 12/18/18 12/17/18 History Lisinopril [Zestril] 20 mg PO QPM 02/12/16 12/18/18 12/17/18 History Omeprazole Magnesium [PriLOSEC Otc] 20 mg PO QDAY 02/12/16 12/18/18 12/17/18 History amLODIPine [Norvasc] 5 mg PO DAILY 02/12/16 12/18/18 12/17/18 History Active Meds: Active Medications Acetaminophen (Tylenol) 650 mg PO Q4H PRN PRN Reason: Pain MILD(1-3)/Fever >100.5/JURADO Albuterol (Proventil) 2.5 mg IH Q3HRT PRN PRN Reason: Wheezing Aspirin (Baby Aspirin) 81 mg PO QDAY [facility] Last Admin: 12/19/18 13:00 Dose: 81 mg Documented by: Atorvastatin Calcium (Lipitor) 80 mg PO QHS [facility] Famotidine (Pepcid) 20 mg PO BID [facility] Last Admin: 12/19/18 10:37 Dose: 20 mg Documented by: Hydromorphone HCl (Dilaudid) 0.5 mg IV Q3H PRN PRN Reason: Pain , Severe (7-10) Sodium Chloride (Nacl 0.9% 1000 Ml) 1,000 mls @ 42 mls/hr IV DIRECT [facility] Last Admin: 12/18/18 22:43 Dose: 42 mls/hr Documented by: Heparin Sodium/Sodium Chloride (Heparin/ 0.45% Nacl-25,000 Unit/500 Ml) 25,000 unit in 500 mls @ 16 mls/hr IV TITRATE [facility]; Protocol Last Admin: 12/19/18 13:05 Dose: 800 units/hr, 16 mls/hr Documented by: Azithromycin 500 mg/ Sodium (Chloride) 250 mls @ 250 mls/hr IV Q24HR@2200 [facility]; Protocol Last Admin: 12/18/18 23:29 Dose: 250 mls/hr Documented by: Ceftriaxone Sodium (Rocephin/Ns 2 Gm/100 Ml) 2 gm in 100 mls @ 200 mls/hr IV Q24HR@2200 [facility]; Protocol Last Admin: 12/18/18 22:50 Dose: 200 mls/hr Documented by: Sodium Chloride (Nacl 0.9% 500 Ml) 500 mls @ 50 mls/hr IV DIRECT [facility] Stop: 12/19/18 21:59 Metoprolol Tartrate (Lopressor) 12.5 mg PO BID [facility] Last Admin: 12/19/18 13:00 Dose: 12.5 mg Documented by: Ondansetron HCl (Zofran) 4 mg IV Q8H PRN PRN Reason: Nausea And Vomiting Oxycodone/Acetaminophen (Percocet 5/325) 1 tab PO Q6H PRN PRN Reason: Pain, Moderate (4-6) Pantoprazole Sodium (Protonix) 40 mg PO QDAY [facility] Last Admin: 12/19/18 13:00 Dose: 40 mg Documented by: Sodium Chloride (Sodium Chloride Flush Syringe 10 Ml) 10 ml IV BID [facility] Last Admin: 12/19/18 10:37 Dose: 10 ml Documented by: Sodium Chloride (Sodium Chloride Flush Syringe 10 Ml) 10 ml IV PRN PRN PRN Reason: LINE FLUSH Review of Systems Constitutional: no weight loss, no fever, no chills, no sweats, no night sweats Cardiovascular: no chest pain, no orthopnea, no edema, no syncope, no lightheadedness, no shortness of breath Respiratory: hemoptysis, no cough, no cough with sputum, no excessive sputum, no shortness of breath, no congestion, no wheezing, no pleurisy Gastrointestinal: no abdominal pain, no nausea, no vomiting, no change in bowel habits, no coffee ground emesis Neurological: no transient paralysis, no weakness, no parathesias, no tingling, no seizures, no syncope Psychiatric: anxiety, insomnia, no memory loss, no hypersomnia, no suicidal ideation, no disorientation, no hallucinations Hematologic/Lymphatic: no easy bruising, no easy bleeding Allergic/Immunologic: no urticaria, no allergic rhinitis, no wheezing, no persistent infections, no anaphylaxis, no angioedema Physical Examination Vital signs: Vital Signs Temp Pulse Resp BP Pulse Ox 98.2 F 79 18 167/79 84 12/18/18 13:05 12/18/18 13:05 12/18/18 13:05 12/18/18 13:05 12/18/18 13:05 Vitals, reviewed General appearance: Present: no acute distress, well-nourished On supplemental oxygen at 2L/min - EENT Eyes: Present: PERRL ENT: hearing intact, clear oral mucosa - Neck Neck: Present: supple, normal ROM - Respiratory Respiratory effort: normal Respiratory: bilateral: CTA - Cardiovascular Heart rate: 78 Rhythm: regular Heart Sounds: Present: S1 & S2. Absent: rub, click - Extremities Extremities: no ischemia, pulses symmetrical, No edema Peripheral Pulses: within normal limits - Abdominal General gastrointestinal: Present: soft, non-tender, non-distended, normal bowel sounds Female genitourinary: Present: normal - Rectal Rectal Exam: stool brown - Integumentary Integumentary: Present: clear, warm, dry - Musculoskeletal Musculoskeletal: gait normal, strength equal bilaterally - Psychiatric Psychiatric: appropriate mood/affect, intact judgment & insight - Neurologic Neurologic: CNII-XII intact, moves all extremities General appearance: no acute distress Results - Laboratory Findings CBC and BMP: 12/20/18 05:05 12/19/18 05:39 PT/INR, D-dimer PT 13.8 Sec. (12.2-14.9) 12/18/18 21:51 INR 1.09 (0.87-1.13) 12/18/18 21:51 Abnormal lab findings: Abnormal Labs 12/18/18 12/18/18 12/18/18 15:06 15:06 18:27 WBC 16.3 H Hgb 14.6 H Hct 43.5 H MCV 98 H MCH 33 H Lymph % (Auto) 6.9 L Lymph # 1.1 L [place] # 0.9 H Seg Neutrophils % 86.8 H Seg Neutrophils # 14.2 H Creatinine Troponin T 0.062 H 0.093 H Albumin HDL Cholesterol 91 H 12/18/18 12/18/18 12/19/18 20:23 21:51 05:39 WBC 14.2 H Hgb 14.4 H Hct MCV 98 H MCH 33 H Lymph % (Auto) Lymph # [place] # 0.9 H Seg Neutrophils % 78.8 H Seg Neutrophils # 11.2 H Creatinine Troponin T 0.088 H Albumin HDL Cholesterol 12/19/18 05:39 WBC Hgb Hct MCV MCH Lymph % (Auto) Lymph # [place] # Seg Neutrophils % Seg Neutrophils # Creatinine 0.6 L Troponin T Albumin 3.7 L HDL Cholesterol - Diagnostic Findings Chest x-ray: image reviewed CT scan - chest: image reviewed Assessment and Plan Hemoptysis Abnormal CT chest- interstial edema NSTEMI-Abnormal EKG with new T wave inversion Marajuana use -Hemoptysis appears to be secondary to acute bronchitis and alveolar edema. There is no indication for bronchoscopy at this time. Agree with treatment with antibiotics for CAP, and treatment for NSTEMI -Cardioprotective measures -Monitor hemoglobin closely -Supplemental oxygen as indicated for O2 says<90% -Bronchodilators per prtocol -OK for cardiac catheterization tomorrow -Substance abuse counselling done -Serial CXRs, ABG as indicated Discussed care plan with the patient and her . All their questions were answered
[2018-12-19] MEDS: AMBIEN PO PRN (21:54)
[2018-12-19] MEDS: ROCEPHIN/NS 2 GM/100 ML 2 GM/100 ML BAG IV SCH (21:57)
[2018-12-19] MEDS: ZITHROMAX 500 MG in NACL 0.9% 250ML 250 ML IV SCH (21:59)
[2018-12-19] MEDS: NACL 0.9% 1000 ML 1,000 ML IV SCH (22:07)
[2018-12-20 05:43] LABS: Hematocrit 36.5 % (30.3-42.9); Hemoglobin 12.5 gm/dl (10.1-14.3)
[2018-12-20] MEDS: HEPARIN/ 0.45% NACL-25,000 UNIT/500 ML 25,000 UNIT/500 ML BAG IV SCH (07:59)
[2018-12-20] MEDS ORDERED: CALAN ONE (09:43)
[2018-12-20] MEDS ORDERED: HEPARIN 10,000 UNITS/10 ML ONE (09:43)
[2018-12-20] MEDS ORDERED: HEPARIN/NS 5000 UNIT/500ML(CATH LAB) 1,000 ML IR ONE (09:43)
[2018-12-20] MEDS ORDERED: NITROGLYCERIN SYRINGE 3 ML ONE (09:44)
[2018-12-20] MEDS ORDERED: XYLOCAINE 2% INFILTRATI ONE (09:44)
[2018-12-20] MEDS ORDERED: NACL 0.9% 1000 ML 1,000 ML ONE (10:04)
[2018-12-20] MEDS: BABY ASPIRIN PO SCH (10:35)
[2018-12-20] MEDS ORDERED: BABY ASPIRIN ONE (10:36)
--- NOTE | 2018-12-20 10:37 | Progress Note ---
Assessment and Plan - NSTEMI Continued oxygen, heparin, BB, nitroglycerin, aspirin, statins and morphine Serial cardiac enzymes elevated Abnormal EKG Supervisor Mechanic Boilermaking following. For cardiac cath today - Hemoptysis Chest x-ray shows mild interstitial edema. Infiltrates CTA of the chest shows no evidence of embolism. BNP was 843 - nl - HTN Blood pressure controlled - GERD On IV pantoprazole - DVT prophylaxis On heparin Time spent: 32 minutes Subjective Date of service: 12/19/18 Principal diagnosis: elevated cardiac enzymes, chest pain, Interval history: Patient has no more chest pain. No shortness of breath. No hematemesis or hemoptysis. Objective - Exam Narrative Exam: Constitutional: Well-nourished well-developed. In no distress Head: Normocephalic atraumatic Eyes: Pupils are equal round and reactive to light Nose: No enlarged turbinates, no septal deviation. Mouth: Moist mucous membranes. Neck: Supple no thyromegaly. No bruit. No JVD Heart: Regular rate and rhythm, S1-S2 normal. No rubs murmurs or gallop Lungs: Clear to auscultation bilaterally. no rales or rhonchi Abdomen: Soft, nontender. Bowel sound are present. Extremities: No edema, no cyanosis, no clubbing. Neuro: Alert oriented Oriented x3. No focal sensory or motor deficit. Skin: No rashes or hyperpigmented spots Musculoskeletal system: No joint pain or swelling Hematological: No petechia or subcutanous hemorrhages. Immunological: No multiple septic spots on the skin Lymphatic: No generalized lymphadenopathy Psychiatry: Euthymic. Calm. - Constitutional Vitals: Vital Signs - 12hr 12/19/18 12/20/18 12/20/18 23:44 01:00 03:43 Temperature 98.0 F 98.0 F Pulse Rate 49 L 56 L 56 L Respiratory 18 18 Rate Blood Pressure 138/53 116/37 O2 Sat by Pulse 97 98 Oximetry - Labs CBC & Chem 7: 12/20/18 05:05 12/19/18 05:39
--- NOTE | 2018-12-20 10:40 | Progress Note ---
Assessment and Plan 78-year-old -[place] female with history of hypertension and GERD presents with complaints of coughing up blood in AM one time.vIt was a blood clot and Significant about 5 ml x 1 today. She states she has been feeling fatigued for the past few days, but denies any chest pain, shortness of breath, worsening GERD, or abdominal pain. No Black tarry stools. She states she believes she coughed up blood with a few clots .She denies any history of PE/DVT, however states mild bilateral lower leg pain without swelling. No recent long travel or hormonal use. No chest pain or diaphoresis. - NSTEMI Continued oxygen, heparin, BB, nitroglycerin, aspirin, statins and morphine Serial cardiac enzymes elevated Abnormal EKG Director Of Channel Marketing following. For cardiac cath today - Hemoptysis Chest x-ray shows mild interstitial edema. Infiltrates CTA of the chest shows no evidence of embolism. BNP was 843 - nl - HTN Blood pressure controlled - GERD On IV pantoprazole - DVT prophylaxis On heparin Time spent: 32 minutes Subjective Date of service: 12/19/18 Principal diagnosis: elevated cardiac enzymes, chest pain, Interval history: Patient has no more chest pain. No shortness of breath. No hematemesis or hemoptysis. Objective - Exam Narrative Exam: Constitutional: Well-nourished well-developed. In no distress Head: Normocephalic atraumatic Eyes: Pupils are equal round and reactive to light Nose: No enlarged turbinates, no septal deviation. Mouth: Moist mucous membranes. Neck: Supple no thyromegaly. No bruit. No JVD Heart: Regular rate and rhythm, S1-S2 normal. No rubs murmurs or gallop Lungs: Clear to auscultation bilaterally. no rales or rhonchi Abdomen: Soft, nontender. Bowel sound are present. Extremities: No edema, no cyanosis, no clubbing. Neuro: Alert oriented Oriented x3. No focal sensory or motor deficit. Skin: No rashes or hyperpigmented spots Musculoskeletal system: No joint pain or swelling Hematological: No petechia or subcutanous hemorrhages. Immunological: No multiple septic spots on the skin Lymphatic: No generalized lymphadenopathy Psychiatry: Euthymic. Calm. - Constitutional Vitals: Vital Signs - 12hr 12/19/18 12/20/18 12/20/18 23:44 01:00 03:43 Temperature 98.0 F 98.0 F Pulse Rate 49 L 56 L 56 L Respiratory 18 18 Rate Blood Pressure 138/53 116/37 O2 Sat by Pulse 97 98 Oximetry - Labs CBC & Chem 7: 12/20/18 05:05 12/19/18 05:39
[2018-12-20] MEDS: VERSED ONE ×2 (12:31→12:33)
[2018-12-20] MEDS: SUBLIMAZE ONE ×2 (12:31→12:33)
--- NOTE | 2018-12-20 13:16 | Event Note ---
Date: 12/20/18 Catheterization was completed via the right radial approach. No complications. We found essentially angiographically near normal coronary arteries. We found mild overall left ventricular systolic dysfunction, with regional wall motion abnormalities that may suggest Takotsubo as the underlying pathology. Recommend: Medical therapy including afterload agent, beta blockers and aspirin. Patient is stable for cardiac discharge today after 6 hours of post cath observation.
--- NOTE | 2018-12-20 13:17 | Progress Note ---
Assessment and Plan Patient alert, awake. Says still feeling weak. No acute respiratory distress. No hemoptysis. Patient is on 3 litres O2 via nasal canula and O2 saturation 100% . Patient S/P cardiac catherization. Denies chest pain.. - Patient Problems (1) Hemoptysis Current Visit: Yes Status: Acute Plan to address problem: No hemoptysis to day. Chest xray reported mild interstitial edema. (2) Hypoxia Current Visit: Yes Status: Acute Plan to address problem: Improved. Presently on 3 litres O2 via nasal canula and O2 saturation 100%. (3) NSTEMI (non-ST elevated myocardial infarction) Current Visit: Yes Status: Acute Plan to address problem: Management as per cardiology. (4) GERD (gastroesophageal reflux disease) Current Visit: Yes Status: Chronic Qualifiers: Esophagitis presence: without esophagitis Qualified Code(s): K21.9 - Gastro-esophageal reflux disease without esophagitis Plan to address problem: Patient is on famotidine. (5) HTN (hypertension) Current Visit: Yes Status: Chronic Qualifiers: Hypertension type: essential hypertension Qualified Code(s): I10 - Essential (primary) hypertension Plan to address problem: Management as per primary care. Subjective Date of service: 12/20/18 Principal diagnosis: elevated cardiac enzymes, chest pain, Interval history: Patient alert, awake. Says still feeling weak. No acute respiratory distress. No hemoptysis. Patient is on 3 litres O2 via nasal canula and O2 saturation 100% . Patient S/P cardiac catherization. Denies chest pain. Objective Vital Signs - 12hr 12/20/18 12/20/18 03:43 08:00 Temperature 98.0 F Pulse Rate 56 L Pulse Rate [ 67 Apical] Respiratory 18 15 Rate Blood Pressure 116/37 O2 Sat by Pulse 98 Oximetry Constitutional: no acute distress, alert Eyes: non-icteric ENT: oropharynx moist Neck: supple, no lymphadenopathy Ascultation: Bilateral: clear Cardiovascular: regular rate and rhythm Gastrointestinal: normoactive bowel sounds, soft Integumentary: normal Extremities: no cyanosis, no edema Neurologic: normal mental status, non-focal exam, pupils equal and round, CN II- XII normal Psychiatric: depressed CBC and BMP: 12/20/18 05:05 12/19/18 05:39 ABG, PT/INR, D-dimer: PT/INR, D-dimer PT 13.8 Sec. (12.2-14.9) 12/18/18 21:51 INR 1.09 (0.87-1.13) 12/18/18 21:51 Abnormal lab findings: Abnormal Labs 12/18/18 12/18/18 12/18/18 15:06 15:06 18:27 WBC 16.3 H Hgb 14.6 H Hct 43.5 H MCV 98 H MCH 33 H Lymph % (Auto) 6.9 L Lymph # 1.1 L [place] # 0.9 H Seg Neutrophils % 86.8 H Seg Neutrophils # 14.2 H Creatinine Troponin T 0.062 H 0.093 H Albumin HDL Cholesterol 91 H 12/18/18 12/18/18 12/19/18 20:23 21:51 05:39 WBC 14.2 H Hgb 14.4 H Hct MCV 98 H MCH 33 H Lymph % (Auto) Lymph # [place] # 0.9 H Seg Neutrophils % 78.8 H Seg Neutrophils # 11.2 H Creatinine Troponin T 0.088 H Albumin HDL Cholesterol 12/19/18 05:39 WBC Hgb Hct MCV MCH Lymph % (Auto) Lymph # [place] # Seg Neutrophils % Seg Neutrophils # Creatinine 0.6 L Troponin T Albumin 3.7 L HDL Cholesterol Chest x-ray: report reviewed (Mild interstitial edema.), image reviewed
--- NOTE | 2018-12-20 13:53 | Cardiac Catherization Report ---
REASON FOR PROCEDURE: The patient is a 78-year-old woman who presented to the hospital with chest pain and abnormal EKG with deep anterolateral T-wave inversions. She was recommended for cardiac catheterization. PROCEDURES: 1. Left heart catheterization. 2. Selective left and right coronary angiography. 3. Left ventricle angiography. SEDATION TIME: Start 12:30, end 12:48. DESCRIPTION OF PROCEDURE: The patient was prepped and draped in a sterile fashion after informed consent. The right radial cath site was prepped and draped after a negative Phil's test. The right radial artery was entered using the Seldinger technique followed by placement of a 6-Amharic hydrophilic sheath. Routine radial cocktail was administered via the sheath. Left coronary angiography was performed using #3.5 left Agueda catheter. A #4 right Agueda was used for right coronary angiography. The pigtail catheter was used for left ventricle angiography. The catheters were then removed, sheath removed, hemostasis achieved using manual compression. The patient was returned to the postprocedure unit in stable condition. There were no complications. FINDINGS: HEMODYNAMICS: Left ventricular end-diastolic pressure was 20, following coronary angiography. Ascending aortic pressure was 175/80. There was no significant pressure gradient on pullback across the aortic valve. CORONARY ANGIOGRAPHY: There was mild calcification of the proximal segments of the left coronary vessels. The left main coronary artery was otherwise free of significant disease. The left anterior descending artery and its diagonal branches were free of significant disease. Mild luminal irregularities of the mid LAD were noted. The circumflex artery and its obtuse marginal branches were angiographically normal. The right coronary artery was dominant. This vessel contained mild atherosclerosis of its proximal and mid segments, otherwise free of significant disease. Left ventricle angiography revealed [id number] hypokinesis of the mid to distal anterior wall, apex and inferoapical segments. The overall left ventricular systolic ejection fraction was 40-45%. The pattern of regional wall motion abnormalities suggests a possible Takotsubo type cardiomyopathy. CONCLUSION: 1. No significant coronary artery disease, essentially angiographically near normal coronary arteries. 2. Mild nonischemic cardiomyopathy, overall left ventricular ejection fraction 40-45%. 3. Regional wall motion abnormalities may suggest a Takotsubo type cardiomyopathy. RECOMMENDATION: Medical therapy and risk factor modification. JOB# [id number] CA/NTS
[2018-12-20] MEDS: SODIUM CHLORIDE FLUSH SYRINGE 10 ML IV SCH ×2 (14:30→22:59)
[2018-12-20] MEDS: PEPCID PO SCH ×2 (14:30→21:52)
[2018-12-20] MEDS: PROTONIX PO SCH (14:30)
[2018-12-20] MEDS: LOPRESSOR PO SCH ×2 (14:30→22:59)
[2018-12-20] MEDS: ROCEPHIN/NS 2 GM/100 ML 2 GM/100 ML BAG IV SCH (21:50)
[2018-12-20] MEDS: AMBIEN PO PRN (21:51)
[2018-12-20] MEDS: ZITHROMAX 500 MG in NACL 0.9% 250ML 250 ML IV SCH (22:59)
[2018-12-21 07:50] VITALS: BP 175/89
[2018-12-21] MEDS: BABY ASPIRIN PO SCH (09:26)
[2018-12-21] MEDS: PEPCID PO SCH (09:26)
[2018-12-21] MEDS: PROTONIX PO SCH (09:27)
[2018-12-21] MEDS: SODIUM CHLORIDE FLUSH SYRINGE 10 ML IV SCH (09:27)
[2018-12-21] MEDS: LOPRESSOR PO SCH (09:27)
[2018-12-21] MEDS ORDERED: ZESTRIL PO SCH (10:00)
--- NOTE | 2018-12-21 11:02 | Progress Note ---
Assessment and Plan NSTEMI [facility] this admission: normal coronary arteries. There was mild overall left ventricular systolic dysfunction, with regional wall motion abnormalities that may suggest Takotsubo as the underlying pathology. Abnormal EKG Hemoptysis -chief complaint no significant drop in H&H HTN Recommend: Continue medical therapy including afterload agent, beta blockers and aspirin. Stable, cardiac dejesus for discharge home today. Subjective Date of service: 12/21/18 Principal diagnosis: elevated cardiac enzymes, chest pain, Interval history: Patient denies chest pain and shortness of breath. Objective Vital Signs Temp Pulse Pulse Resp BP Pulse Ox 12/21/18 09:27 66 175/89 12/21/18 09:26 66 175/89 12/21/18 09:00 66 12/21/18 08:00 66 18 100 12/21/18 07:32 98.4 F 66 18 175/89 100 12/21/18 03:39 98.3 F 56 L 18 133/47 100 12/20/18 23:20 98.5 F 54 L 18 137/42 97 12/20/18 22:59 55 L 12/20/18 19:16 98.3 F 55 L 18 150/59 98 12/20/18 17:00 87 12/20/18 15:38 161/62 12/20/18 14:30 74 161/75 12/20/18 14:00 58 L 19 162/58 100 12/20/18 13:45 60 18 170/67 97 12/20/18 13:30 98 F 62 17 161/58 100 - Physical Examination General: No Apparent Distress HEENT: Positive: PERRL Neck: Positive: neck supple Cardiac: Positive: Reg Rate and Rhythm Lungs: Positive: Normal Breath Sounds Neuro: Positive: Grossly Intact Extremities: Absent: edema
--- NOTE | 2018-12-21 11:53 | Discharge Summary ---
Providers - Providers Date of Admission: 12/18/18 18:16 Date of discharge: 12/21/18 Attending physician: JACINDA VALDOVINOS 12/18/18 21:12 Consult to Physician [CONS] Routine Comment: Consulting Provider: PATI HIGH Physician Instructions: Reason For Exam: NSTEMI 12/19/18 11:19 Consult to Physician [CONS] Urgent Comment: Consulting Provider: MUMTAZ GUERRERO Physician Instructions: Reason For Exam: hemoptysis Primary care physician: MONICA GUERRERO Hospitalization Condition: Stable Pertinent studies: CXR CTA chest Procedures: C this admission: normal coronary arteries. There was mild overall left ventricular systolic dysfunction, with regional wall motion abnormalities that may suggest Takotsubo as the underlying pathology. Hospital course: Patient is a 78 yr with no significant past cardiac history who presented to the hospital after an episode of hematemesis. Patient reports she coughed up blood spontaneously. She has been having some bronchitis type symptoms earlier. Concerned with coughing blood she came in to the ER. In the ER she was noted to have an abnormal EKG and elevated cardiac enzymes. She reports no chest pain or SOB. No prior episodes of hematemesis. CT chest in the ER was negative for PE. 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 She does have a family history of CAD with her sister having to undergo CABG. She was recenlty in the ER couple of months ago and was discharged home on Naproxen. Cardiology recommended cardiac cath which revealed no major CAD. patient was placed on zithromax for URI. She was then discharged home in stable condition with outpt f/u. Discharge diagnosis and mx: - Hemoptysis, resolved, h/h stable could be from URI Chest x-ray shows mild interstitial edema. no Infiltrates CTA of the chest shows no evidence of embolism. BNP was 843 - nl will treat with zithromax for possible URI Leukocytosis, likely reactive from URI - patient had no fever, no hypoxia - treated with abx - NSTEMI type 2 likely from underlying CHF Continued oxygen, heparin drip, BB, nitroglycerin, aspirin, statins and morphine Serial cardiac enzymes elevated, had Abnormal EKG Milking Machine Technician consulted. s/p cardiac cath showed no major CAD with Ef 40-45% - need medical mx patient was discharged home with outpt followup New onset CHFrEF: - left ventricular systolic dysfunction, with regional wall motion abnormalities that may suggest Takotsubo as the underlying pathology. - medical Mx per cardiology - HTN, uncontrolled Blood pressure monitored - GERD On IV pantoprazole - DVT prophylaxis On heparin Disposition: DC-01 TO HOME OR SELFCARE Time spent for discharge: 34 minutes Core Measure Documentation - Palliative Care Palliative Care/ Comfort Measures: Not Applicable - Core Measures Any of the following diagnoses?: none Exam - Constitutional Vitals: Temp Pulse Resp BP Pulse Ox 98.4 F 66 18 155/89 100 12/21/18 07:32 12/21/18 09:27 12/21/18 08:00 12/21/18 09:27 12/21/18 08:00 General appearance: Present: no acute distress - EENT Eyes: Present: PERRL ENT: hearing intact, clear oral mucosa - Neck Neck: Present: supple, normal ROM - Respiratory Respiratory effort: normal Respiratory: bilateral: CTA - Cardiovascular Heart Sounds: Present: S1 & S2. Absent: rub, click - Extremities Extremities: pulses symmetrical, No edema Peripheral Pulses: within normal limits - Abdominal General gastrointestinal: Present: soft, non-tender, non-distended, normal bowel sounds - Integumentary Integumentary: Present: clear, warm, dry - Musculoskeletal Musculoskeletal: gait normal, strength equal bilaterally - Psychiatric Psychiatric: appropriate mood/affect, intact judgment & insight - Neurologic Neurologic: CNII-XII intact, moves all extremities Plan Activity: advance as tolerated Weight Bearing Status: Non-Weight Bearing Diet: low fat, low salt Special Instructions: record daily BP diary Follow up with: MONICA GUERRERO MD [Primary Care Provider] - 7 Days Forms: Accompanied Note, CardCatmisty PCI D/C Instructions Prescriptions: AtorvaSTATin [Lipitor] 40 mg PO QHS #30 tablet Aspirin [Aspirin BABY CHEW TAB] 81 mg PO QDAY #30 tab.chew Metoprolol [Lopressor TAB] 12.5 mg PO BID #30 tablet Lisinopril [Zestril TAB] 5 mg PO QDAY #30 tablet Azithromycin [Zithromax] 250 mg PO DAILY #5 tablet
--- NOTE | 2018-12-21 13:03 | Progress Note ---
Assessment and Plan Patient alert, awake. Says still feeling weak. No acute respiratory distress. No hemoptysis. Patient is presently resting on room air . O2 saturation recorded 100%. Patient S/P cardiac catherization. Denies chest pain.. - Patient Problems (1) Hemoptysis Status: Acute Plan to address problem: No hemoptysis to day. Chest xray reported mild interstitial edema. (2) Hypoxia Status: Acute Plan to address problem: Improved. Presently on room air and O2 saturation recorded 100%. (3) NSTEMI (non-ST elevated myocardial infarction) Status: Acute Plan to address problem: Management as per cardiology. (4) GERD (gastroesophageal reflux disease) Status: Chronic Qualifiers: Esophagitis presence: without esophagitis Qualified Code(s): K21.9 - Gastro-esophageal reflux disease without esophagitis Plan to address problem: Patient is on famotidine. (5) HTN (hypertension) Status: Chronic Qualifiers: Hypertension type: essential hypertension Qualified Code(s): I10 - Essential (primary) hypertension Plan to address problem: Management as per primary care. Subjective Date of service: 12/21/18 Principal diagnosis: elevated cardiac enzymes, chest pain, Interval history: Patient alert, awake. Says still feeling weak. No acute respiratory distress. No hemoptysis. Patient is presently resting on room air . O2 saturation recorded 100%. Patient S/P cardiac catherization. Denies chest pain. Objective Vital Signs - 12hr 12/21/18 12/21/18 12/21/18 03:39 07:32 08:00 Temperature 98.3 F 98.4 F Pulse Rate 56 L 66 Pulse Rate [ 66 From Monitor] Respiratory 18 18 18 Rate Blood Pressure 133/47 175/89 O2 Sat by Pulse 100 100 100 Oximetry 12/21/18 12/21/18 12/21/18 09:00 09:26 09:27 Temperature Pulse Rate 66 66 66 Pulse Rate [ From Monitor] Respiratory Rate Blood Pressure 175/89 175/89 O2 Sat by Pulse Oximetry Constitutional: no acute distress, alert Eyes: non-icteric ENT: oropharynx moist Neck: supple, no lymphadenopathy Ascultation: Bilateral: clear Cardiovascular: regular rate and rhythm Gastrointestinal: normoactive bowel sounds, soft Integumentary: normal Extremities: no cyanosis, no edema Neurologic: normal mental status, non-focal exam, pupils equal and round, CN II- XII normal Psychiatric: depressed CBC and BMP: 12/20/18 05:05 12/19/18 05:39 ABG, PT/INR, D-dimer: PT/INR, D-dimer PT 13.8 Sec. (12.2-14.9) 12/18/18 21:51 INR 1.09 (0.87-1.13) 12/18/18 21:51 Abnormal lab findings: Abnormal Labs 12/18/18 12/18/18 12/18/18 15:06 15:06 18:27 WBC 16.3 H Hgb 14.6 H Hct 43.5 H MCV 98 H MCH 33 H Lymph % (Auto) 6.9 L Lymph # 1.1 L Rock # 0.9 H Seg Neutrophils % 86.8 H Seg Neutrophils # 14.2 H Heparin Anti-Xa Level Creatinine Troponin T 0.062 H 0.093 H Albumin HDL Cholesterol 91 H 12/18/18 12/18/18 12/19/18 20:23 21:51 05:39 WBC 14.2 H Hgb 14.4 H Hct MCV 98 H MCH 33 H Lymph % (Auto) Lymph # Rock # 0.9 H Seg Neutrophils % 78.8 H Seg Neutrophils # 11.2 H Heparin Anti-Xa Level Creatinine Troponin T 0.088 H Albumin HDL Cholesterol 12/19/18 12/20/18 05:39 15:21 WBC Hgb Hct MCV MCH Lymph % (Auto) Lymph # Rock # Seg Neutrophils % Seg Neutrophils # Heparin Anti-Xa Level < 0.10 L Creatinine 0.6 L Troponin T Albumin 3.7 L HDL Cholesterol
== END 2018-12-21 14:22 | disposition home or self-care (01) | DRG 281 ==
LOC: ED 13:00 → 4A 18:16
PROVIDERS: ADMIT Internal Medicine; ATTEND Internal Medicine
PROC: 4A023N7 Measurement of Cardiac Sampling and Pressure, Left Heart, Percutaneous Approach (ICD-10-PCS; principal; 2018-12-20)
PROC: B2111ZZ Fluoroscopy of Multiple Coronary Arteries using Low Osmolar Contrast (ICD-10-PCS; 2018-12-20)
PROC: B2151ZZ Fluoroscopy of Left Heart using Low Osmolar Contrast (ICD-10-PCS; 2018-12-20)
DX: I21.4 Non-ST elevation (NSTEMI) myocardial infarction (principal); K92.0 Hematemesis; I50.20 Unspecified systolic (congestive) heart failure; R09.02 Hypoxemia; K21.9 Gastro-esophageal reflux disease without esophagitis; F32.9 Major depressive disorder, single episode, unspecified; R94.31 Abnormal electrocardiogram [ECG] [EKG]; I11.0 Hypertensive heart disease with heart failure; M19.90 Unspecified osteoarthritis, unspecified site; F17.200 Nicotine dependence, unspecified, uncomplicated; F12.90 Cannabis use, unspecified, uncomplicated; Z82.49 Family history of ischemic heart disease and other diseases of the circulatory system; Z95.1 Presence of aortocoronary bypass graft; Z79.899 Other long term (current) drug therapy; Z87.442 Personal history of urinary calculi; Z98.49 Cataract extraction status, unspecified eye
CPT/HCPCS: 36415; 71045; 71275; 80048; 80053; 80061; 81001; 83036; 83880; 84484; 85014; 85018; 85025; 85049; 85520; 85610; 85730; 93005; 93010; 93458; 93970; 94640; 96365; 96375; G0378; A9270-GY; C1894; J0456; J0696; J1170; J1644; J2250; J3010; J7030; J7050; Q9967